=== PATIENT | male | born 1950 | race Caucasian/White ===

== ENCOUNTER 2018-10-27 | Outpatient (CLI) | payer MEDICARE, MEDICAID, SELFPAY ==
--- NOTE | 2018-10-27 08:15 | MERGEMPI_ITS ---
*[facility]* *[facility]* [address] [place] [address] Myocardial Perfusion Imaging - SPECT Jac protocol Date of study: 10/27/2018 *PATIENT PRESENTATION* Height: 177.8cm (70in) Blood Pressure: Weight: 75kg (165lb) BSA: 1.93m^2 Referring physician: Thuan Alvarez Ordering physician: Gino Parker MD Impressions: Normal study after maximal exercise. Summary: 1. Myocardial perfusion imaging: No myocardial perfusion defects noted. 2. The calculated left ventricular ejection fraction after stress: 53%. LV global systolic function is normal. No left ventricular regional motion abnormality. 3. Stress ECG conclusions: The stress ECG is negative. Yancey treadmill score: 12. This score predicts a low risk of cardiac events. 4. Stress: The target heart rate was achieved. There is a normal resting blood pressure with an appropriate response to stress. The patient experienced no chest pain during stress. Exercise capacity is excellent (13.5 METS). Indication: R07.89. History: REASON FOR TESTING: INTERMITTENT LEFT CHEST TENDERNESS WHERE THE STENTS ARE, TWO TO THREE TIMES PER WEEK NOT CORRELATING WITH ACTIVITY. PAST MEDICAL HISTORY: PREVIOUS MYOCARCIAL INFARCTION WITH STENTING, HYPERTENSION, HYPERLIPEDEMIA, DEPRESSION, RIGHT SHOULDER ROTATOR CUFF REPAIR, BILATERAL CARPAL TUNNEL RELEASE, BIALTERAL HERNIA REPAIRS WITH SEPARATE SURGERIES, EXCISION OF A MASS FROM LEFT SIDE OF NECK, AND TONSILLECTOMY AND ADENOIDECTOMY. FAMILY HISTORY: FATHER--HEART ATTACK, MOTHER- DYSRHYMIA, BROTHER- HYPERTENSION. SMOKING STATUS: NEVER EXERCISE ROUTINE: SUMMER--VERY ACTIVE WITH KAYAKING AND SWIMMING. 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 Risk factors: Family history of coronary artery disease. Hypertension. Dyslipidemia. ALLERGIES: AMITRIPTYLINE, DULOXETINE HCI, NAPROXEN. MEDICATIONS: LOSARTAN 50 MG DAILY, FLUOXETINE 40 MG DAILY, BISOPROLOL FUMARATE 5 MG DAILY, ASPIRIN 325 MG DAILY, TRAMADOL 50 MG PRN. Imaging Technique: Protocol: Jac protocol. Acquisition: Gated SPECT; 1 day - rest/stress. The patient was imaged in the supine position. Attenuation correction used. Isotope administration: - Rest. Tc[99m]-sestamibi. Dose: 9.7mCi. Injection time: 08:50 AM. Injection to stress time: 00:45. - Stress. Tc[99m]-sestamibi. Dose: 32.1mCi. Injection time: 09:52 AM. 1-2 min before end of exercise Baseline ECG: SINUS BRADYCARDIA WITH T WAVE INVERSION IN LEAD III WITH HEART RATE OF 54. Sinus bradycardia. Stress protocol: + +---+ + + !Stage !HR !BP (mmHg) !Comments ! + +---+ + + !1 min !---! !Inject Regadenoson.! + +---+ + + !Baseline supine !54 !148/84 ! ! ! ! !(105) ! ! + +---+ + + !Baseline standing !56 !128/78 (95)! ! + +---+ + + !Stage I; 1.7mph, 10degrees; 3 min !83 !158/88 ! ! ! ! !(111) ! ! + +---+ + + !Stage II; 2.5mph, 12degrees; 3 min!97 !148/86 ! ! ! ! !(107) ! ! + +---+ + + !Stage III; 3.4mph, 14degrees; 3 !115!162/88 ! ! !min ! !(113) ! ! + +---+ + + !Stage IV; 4.2mph, 16degrees; 3 min!122!192/96 ! ! ! ! !(128) ! ! + +---+ + + !Recovery; 1 min !121!162/76 ! ! ! ! !(105) ! ! + +---+ + + !Recovery; 3 min !84 !188/88 ! ! ! ! !(121) ! ! + +---+ + + !Recovery; 6 min !73 !130/82 (98)! ! + +---+ + + !1 min !---! !Inject Regadenoson.! + +---+ + + * Stress results: NORMAL HEART RATE RESPONSE. BLOOD PRESSURE RESPONSE: HYPOTENSIVE RESPONSE FROM LYING TO STANDING POSITION. [id number] WITH IMMEDIATE SESSATION OF EXERCISE. NO ECTOPY NOTED. NO ANGINAREPORTED. ISCHEMIA: T WAVE INVERSION IN LEAD III THEN FLIPPED TO UPRIGHT POSITION EARLY DURING EXERCISE AND REMAINED IN UPRIGHT POSITION THROUGH TO THE END OF THE TEST. PATIENT ASYMPTOMATIC. ST WAVE ELEVATION IN VII AT REST AND END OF TEST. Maximal heart rate during stress was 145bpm (95% of maximal predicted heart rate). The maximal predicted heart rate was 152bpm. The target heart rate was achieved. There is a normal resting blood pressure with an appropriate response to stress. The rate-pressure product for the peak heart rate and blood pressure was 63221tz Hg/min. The patient experienced no chest pain during stress. Exercise capacity is excellent (13.5 METS). Stress ECG: The stress ECG is negative. Yancey treadmill score: 12. This score predicts a low risk of cardiac events. Myocardial perfusion: Imaging information: gated. Image quality reduced due to diaphragmatic attenuation. Left ventricular size is normal. Right ventricular size is normal. No myocardial perfusion defects noted. Ventricular Function (Wall Motion): The calculated left ventricular ejection fraction after stress: 53%. LV global systolic function is normal. No left ventricular regional motion abnormality. Right ventricular function is normal. Study data: Thuan Alvarez MD supervised and was readily available during the procedure. This study was interpreted by [facility]. Study status: Routine. Consent: The risks, benefits, and alternatives to the procedure were explained to the patient and informed consent was obtained. Procedure: Initial setup. A baseline ECG was recorded. Surface ECG leads and manual cuff blood pressure measurements were monitored. Heart sounds: Normal. Lung sounds: Normal. Treadmill exercise testing was performed using the Jac protocol. Study completion: All catheters inserted during the procedure were removed. The patient tolerated the procedure well and was discharged from the lab. Discharge: The patient left the laboratory in stable condition. Birthdate: Patient birthdate: 1950. Sex: Gender: male. Study date: Study date: 10/27/2018. Study time: 12:30 PM. Signature Documentation: - The imaging portion of this study was interpreted by Nuclear Director Compensation Thuan Alvarez MD. - The imaging portion of this study was interpreted by Nuclear Radiologist Craig Dumont MD. - The Stress ECG portion of this study was interpreted by Thuan Alvarez MD. Electronically signed by Thuan Alvarez 10/27/2018 12:40
== END 2018-10-27 00:20 ==
PROVIDERS: PCP Internal Medicine; Visit Provider Internal Medicine
DX: R07.89 Other chest pain (principal); I25.10 Atherosclerotic heart disease of native coronary artery without angina pectoris; I25.2 Old myocardial infarction; I10 Essential (primary) hypertension; E78.5 Hyperlipidemia, unspecified; Z82.49 Family history of ischemic heart disease and other diseases of the circulatory system
CPT/HCPCS: 78452; 93016; 93018; 93017

== ENCOUNTER 2018-12-02 11:07 | Outpatient (CLI) | payer MEDICARE, MEDICAID, SELFPAY ==
--- NOTE | 2018-12-02 10:52 | DI.RAD_ITS ---
SYMPTOMS/DIAGNOSIS: RT FOOT PAIN, ATTN TO 3RD METATARSAL PHALANX JOINT, M79.671 RIGHT FOOT: Three views. No priors. At the first metatarsal phalangeal joint there is moderately severe joint space narrowing and moderate sized marginal osteophytes. The remaining metatarsal phalangeal joints are well maintained as are the interphalangeal joints. No acute fracture, dislocation, lytic or sclerotic lesion is seen. The soft tissues are unremarkable. 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
== END 2018-12-02 11:27 ==
PROVIDERS: PCP Internal Medicine; Visit Provider Internal Medicine
DX: M79.671 Pain in right foot (principal); M19.071 Primary osteoarthritis, right ankle and foot
CPT/HCPCS: 73630

== ENCOUNTER 2019-04-26 09:38 | Outpatient (REF) | payer MEDICARE, MEDICAID, SELFPAY ==
[2019-04-26 13:11] LABS: Anion Gap 8.5 mmol/L (3-11); BUN 24 mg/dL (7-18); CO2 27.5 mmol/L (21.0-32.0); CREATININE 0.88 mg/dL (0.70-1.30); Calcium 8.8 mg/dL (8.5-10.1); Chloride 101 mmol/L (98-107); Glucose 99 mg/dL (70-100); Potassium 4.3 mmol/L (3.5-5.1); Sodium 137 mmol/L (136-145)
== END 2019-04-26 09:58 ==
LOC: NCHCN 09:38
PROVIDERS: PCP Internal Medicine; Visit Provider Internal Medicine
DX: I10 Essential (primary) hypertension (principal); I25.10 Atherosclerotic heart disease of native coronary artery without angina pectoris; Z95.5 Presence of coronary angioplasty implant and graft
CPT/HCPCS: 80048

== ENCOUNTER 2019-11-28 16:46 | Outpatient (REF) | payer MEDICARE, MEDICAID, SELFPAY ==
[2019-11-28 22:05] LABS: HCT 45.7 % (40.0-50.0); HGB 15.2 g/dL (13.5-17.5); Mean Corp. HGB Concentration 33.3 g/dL (32.0-36.0); Mean Corpuscular Hemoglobin 29.1 pg (27.0-33.0); Mean Corpuscular Volume 87.4 fL (80-95); Mean Platelet Volume 11.2 fL (8.0-11.0); Platelet Count 273 x1000/uL (130-400); RBC 5.23 m/cumm (4.50-6.00); RBC Distribution Width 13.4 % (11.8-14.1); White Blood Cell Count 4.39 k/cumm (4.4-10.8)
[2019-11-28 22:23] LABS: ALT 31 U/L (16-63); AST 28 U/L (15-37); Alkaline Phosphatase 73 U/L (46-116); Anion Gap 8.6 mmol/L (3-11); BUN 18 mg/dL (7-18); Bilirubin, Total 0.5 mg/dL (0.2-1.0); CO2 28.4 mmol/L (21.0-32.0); CREATININE 0.83 mg/dL (0.70-1.30); Chloride 102 mmol/L (98-107); Glucose 92 mg/dL (74-106); Potassium 4.3 mmol/L (3.5-5.1); Sodium 139 mmol/L (136-145); TSH 1.64 uIU/mL (0.36-3.74); Total Protein 7.3 g/dL (6.4-8.2)
== END 2019-11-28 17:06 ==
LOC: NCHCN 16:46
PROVIDERS: PCP Internal Medicine; Visit Provider Internal Medicine
DX: R53.83 Other fatigue (principal); R68.89 Other general symptoms and signs; I25.10 Atherosclerotic heart disease of native coronary artery without angina pectoris; I10 Essential (primary) hypertension
CPT/HCPCS: 80053; 85027; 84443

== ENCOUNTER 2020-03-22 08:37 | Outpatient (CLI) | payer MEDICARE, MEDICAID, SELFPAY ==
[2020-03-23 23:01] LABS: COVID-19 RT-PCR UVMMC Result Negative (Negative)
== END 2020-03-22 08:57 ==
PROVIDERS: PCP Internal Medicine; Visit Provider Internal Medicine
DX: Z03.818 Encounter for observation for suspected exposure to other biological agents ruled out (principal)
CPT/HCPCS: U0003

== ENCOUNTER 2020-09-18 16:09 | Outpatient (REF) | payer MEDICARE, MEDICAID, SELFPAY ==
[2020-09-18 21:52] LABS: Cholesterol 218 mg/dL (<200); Triglyceride 97 mg/dL (<150)
[2020-09-18 22:13] LABS: Calculated LDL 156 mg/dL (<100); HDL Cholesterol 43 mg/dL (40-60)
[2020-09-20 14:29] LABS: PSA, Screening 0.8 ng/mL (0-6.5)
== END 2020-09-18 16:29 ==
LOC: NCHCN 16:09
PROVIDERS: PCP Internal Medicine; Visit Provider Internal Medicine
DX: I10 Essential (primary) hypertension (principal); I25.10 Atherosclerotic heart disease of native coronary artery without angina pectoris; M47.896 Other spondylosis, lumbar region; F41.9 Anxiety disorder, unspecified; Z00.00 Encounter for general adult medical examination without abnormal findings
CPT/HCPCS: 80061; 84153

== ENCOUNTER 2021-01-17 15:39 | Emergency (ER) | payer MEDICARE, MEDICAID, SELFPAY ==
[2021-01-17] VITALS (18 sets, daily range): BP systolic 155–175; BP diastolic 84–101; PULSE 76–86; RESP 15–30; TEMP 36.8; O2SAT 96–100
--- NOTE | 2021-01-17 15:30 | RT.EKG_ITS ---
APPROVED REPORT Exam: Resting ECG Patient Location: E HR:75 bpm ECG Measurements Heart Rate 75 AXIS AK 211 P 39 QRSd 102 QRS -48 QT 380 T 48 QTc 426 Conclusion Sinus rhythm...normal P axis, V-rate 60- 99 Inferior infarct, acute...ST>0.10mV, T upright, II III aVF Physician: Rate 75, intervals normal, sinus rhythm, 1 mm of elevation in lead II, III, and aVF with s lightly less than 1 mm of depression in aVL. No other reciprocal elevation or depression. Upright T waves in 2 3 aVF and aVL.
--- NOTE | 2021-01-17 15:45 | DI.RAD_ITS ---
EXAM: XR PORTABLE CHEST AP CLINICAL HISTORY: stemi TECHNIQUE: 2D digital imaging was performed. COMPARISON: No exams were available for comparison FINDINGS: MEDIASTINUM: Normal. HEART: Normal. PULMONARY VASCULATURE: Normal. LUNGS: Clear. PLEURAL SPACE: No pleural effusion or pneumothorax. BONE:Within normal limits for the patient's age. Postsurgical changes are seen in the right shoulder . OTHER FINDINGS:Normal. IMPRESSION: No acute pulmonary findings. DATA REPOSITORY: RADIATION DOSE DELIVERED:
[2021-01-17 15:59] LABS: Abs Immature Grans 0.01 10^3/uL (0.0-0.06); Absolute Basophil Count 0.03 10^3/uL (0.0-0.2); Absolute Eosinophil Count 0.09 10^3/uL (0.0-0.7); Absolute Lymphocyte Count 1.56 10^3/uL (1.2-3.4); Absolute Monocyte Count 0.36 10^3/uL (0.1-0.8); Absolute Neutrophil Count 4.48 10^3/uL (1.2-6.7); Basophils % 0.5; Eosinophils % 1.4; HGB 16.3 g/dL (13.5-17.5); Immature Grans % 0.2; Lymphocytes % 23.9; MCH 29.7 pg (27.0-33.0); MCV 87.4 fL (80-95); MPV 9.9 fL (8.0-11.0); Monocytes % 5.5; Neutrophils % 68.5; Nucleated RBC 0 %; Platelet Count 266 10^3/uL (130-400); RBC 5.49 10^6/uL (4.36-5.78); RDW-SD 41.8 fL; WBC 6.53 10^3/uL (4.4-10.8)
--- NOTE | 2021-01-17 16:00 | RT.EKG_ITS ---
APPROVED REPORT Exam: Resting ECG Patient Location: E HR:79 bpm ECG Measurements Heart Rate 79 AXIS IA 222 P 36 QRSd 101 QRS -56 QT 369 T 42 QTc 424 Conclusion Sinus rhythm...normal P axis, V-rate 60- 99 Prolonged IA interval...IA >220, V-rate 50- 90 Inferior infarct, acute...ST>0.10mV, T upright, II III aVF Physcian: Rate 79, sinus rhythm, IA prolonged at 222, intervals otherwise unremarkable, 1 mm of eleva tion in leads II, III, and aVF with less than 1 mm of depression in aVL. T waves remain upright. Mor phology of P waves and elevation appears change compared to prior EKG in 2015
[2021-01-17 16:13] LABS: PTT Activated 22.6 sec (21.0-27.5)
[2021-01-17 16:18] LABS: ALT 30 U/L (16-63); AST 25 U/L (15-37); Albumin 4.1 g/dL (3.4-5.0); Alkaline Phosphatase 74 U/L (46-116); Anion Gap 9.2 mmol/L (3-11); BUN 18 mg/dL (7-18); Bilirubin, Total 0.3 mg/dL (0.2-1.0); CO2 26.8 mmol/L (21.0-32.0); Calcium 9.1 mg/dL (8.5-10.1); Chloride 103 mmol/L (98-107); Glucose 167 mg/dL (74-106); Magnesium 2.2 mg/dL (1.8-2.4); NT-proBNP 83 pg/mL (<300); Potassium 4.2 mmol/L (3.5-5.1); Sodium 139 mmol/L (136-145); Total Protein 7.7 g/dL (6.4-8.2)
[2021-01-17 16:19] LABS: Troponin I < 0.05 ng/mL (<0.06)
[2021-01-17] MEDS: Clopidogrel 300 MG TAB 600 MG PO (16:21)
--- NOTE | 2021-01-17 16:23 | ED.GENADUL_ITS ---
Discharge Plan Disposition Patient Disposition: [facility] Condition: Critical Discharge Details Clinical Impression: ST elevation, Chest pain Primary Care Provider: Gino Parker ED Provider: Kb Hart Home Meds and New Rx's Prescriptions: No Action losartan 25 MG tablet 50 mg PO DAILY RF: 0 aspirin 81 MG tablet,chewable 81 mg PO DAILY RF: 0 Medical Decision Making Upon my evaluation, this patient had a high probability of imminent or life- threatening deterioration, which required my direct attention, intervention, and personal management. I have personally provided 45 minutes of critical care time exclusive of time spent on separately billable procedures. Time includes review of laboratory data, radiology results, discussion with consultants, and monitoring for potential decompensation. Interventions were performed as documented. 70-year-old male with a past medical history of STEMI and stents in 2014 presents today for atypical left arm achiness focally at his distal bicep, and a burning sensation in his chest while he was cooking dinner. He did not eat anything spicy. He also got sweaty and diaphoretic at that time. He laid down and this did not change his symptoms, he drove himself to the ER. He took a Tums and at least 500 mg of aspirin (we discussed antiperspirants speci fically the patient does confirm it was aspirin and Tylenol or ibuprofen)and neither of these improved his symptoms. He came to the ER for further assessment. Patient states that symptoms felt identical to when he had his previous RI in 2015. He denies any ripping or tearing in his chest. He denies any headache, numbness tingling or focal weakness. He also states he has not been taking his home medications for quite some time. No other complaints at this time. No other modifying factors. EKG shows 1 mm of elevation in lead II, III, and aVF with 1 mm of depression in aVL. No other reciprocal depression. Review of prior EKGs demonstrates similar elevation when he was having his last myocardial infarction in the inferior area 6 years ago. However there does appear to be a change in T wave inversions, and T wave morphology for sure. Symptoms are concerning for inferior STEMI. I did contact Dr. Gutierrez and spoke with her at 4:[address] [facility] cardiology, she reviewed the EKG and after a prolonged discussion she feels that at this time with the patient's EKG, age, vital signs, clinical scenario that thrombolytics are not indicated. She did recommend 600 of Plavix and to heparinize the patient. I did request further discussion, and Dr. Gutierrez reviewed the case with hotshot superintendent. We did have subsequent further discussion store consultant back at 417 with the [facility] cardiology. They too upon review of the EKG and history do not feel that thrombolytics are indicated right now but do recommend emergent transfer down to [facility] Administrative Director for further evaluation. With the patient's age, risk factors and taking the entire clinical scenario into account per [facility]'s instructional design specialist recommendations we will withhold thrombolytics. follow their recommendations of 600 of Plavix and to heparinize the patient and sending him directly down to Administrative Director via air transport. The case was discussed with the patient, he has no further questions. The case was also discussed with the patient family members by nursing staff and myself. I have extensively reviewed the treatment plan with the patient. I have addressed all patient concerns at this time. I have also discussed the plan with the admitting physician and they agree with the current assessment and plan and have agreed to assume responsibility for the patient. All parties demonstrate verbal understanding and agreement with our assessment and plan at this time. The documentation in this chart was dictated using [employer] dictation software. Please excuse any dictation errors. At time of transfer the patient was reassessed and continued to demonstrate No signs of acute respiratory distress requiring intubation, hemodynamic instability requiring pressor support, or rapidly declining mental status. The patient is stable for transport. EKG 15: 46 Rate 75, intervals normal, sinus rhythm, 1 mm of elevation in lead II, III, and aVF with slightly less than 1 mm of depression in aVL. No other reciprocal elevation or depression. Upright T waves in 2 3 aVF and aVL. Morphology of P waves and elevation appears change compared to prior EKG in 2014 EKG 16: 14 Rate 79, sinus rhythm, MT prolonged at 222, intervals otherwise unremarkable, 1 mm of elevation in leads II, III, and aVF with less than 1 mm of depression in aVL. T waves remain upright. Morphology of P waves and elevation appears change compared to prior EKG in 2014 FINDINGS: Lungs: Unremarkable. No consolidation. Pleural spaces: Unremarkable. No pleural effusion. No pneumothorax. Heart/Mediastinum: Unremarkable. No cardiomegaly. Bones/joints: Postoperative changes in the right shoulder with metallic anchor in the humeral head and resection distal. IMPRESSION: No acute findings Dictated and Authenticated by: Radha Ribera MD. Ordering:JOSETTE Quiles MD HPI General Date/Time Provider Initiated Documentation: 01/17/21 15:47 . HPI Narrative: 70-year-old male with a past medical history of STEMI and stents in 2014 presents today for atypical left arm achiness focally at his distal bicep, and a burning sensation in his chest while he was cooking dinner. He did not eat anything spicy. He also got sweaty and diaphoretic at that time. He laid down and this did not change his symptoms, he drove himself to the ER. He took a Tums and 500 mg of aspirin and neither of these improved his symptoms. He came to the ER for further assessment. Patient states that symptoms felt identical to when he had his previous RI in 2014. He denies any ripping or tearing in his chest. He denies any headache, numbness tingling or focal weakness. He also states he has not been taking his home medications for quite some time. No other complaints at this time. No other modifying factors. 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 Unverified 01/17/21 15:47 [From Cymbalta] effects naproxen AdvReac pt does Unverified 01/17/21 15:47 not like reaction General Stated Complaint: Chest Pain MINDA: 2 Review of Systems All systems reviewed & are unremarkable except as noted in HPI and below PFSH Medical History BACK PAIN Carpal tunnel syndrome RIGHT History of depression History of hypertension RI (myocardial infarction) 2013 Neck pain ROTATOR CUFF TENDINITIS Surgical History Colonoscopy - MAC (10/02/17) HERNIA REPAIR Social History Smoking/Tobacco Use Status: Never Smoking risk assessment performed?: Yes Alcohol Intake: current Alcohol Intake frequency: a few times a month Drug use: Never Substance use type: does not use Do you feel safe at home: Yes Do you feel safe in your relationship?: Yes Exam Narrative Exam Narrative: 1.Const: Well-nourished, Well-developed, appearing stated age 2.Eyes: PERRL, no conjunctival injection, and symmetrical lids. 3.ENT: Atraumatic external nose and ears. Moist MM. Neck: Symmetric, trachea midline, No thyromegaly. 4.CVS: +S1/S2, No murmurs or gallops. Peripheral pulses 2+ and equal in all extremities. Brisk capillary refill in all extremities. Radial pulses +2 bilaterally 5.RESP: Unlabored respiratory effort. Clear to auscultation bilaterally. No wheezes rales or rhonchi 6.GI: Soft, Nontender/Nondistended, No hepatosplenomegaly. No guarding or rebound. 7.MSK: Normocephalic/Atraumatic, Extremities w/o deformity or ttp No cyanosis or clubbing, Normal movement of all extremities 8.Skin: Warm, Dry. No rashes or lesions. 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 Sensation grossly intact, no focal neurologic deficits. 10.Psych: (AAO) x3. Appropriate mood and affect Course Vital Signs Vital signs: Vital Signs Pulse 78 01/17/21 15:45 Respiratory Rate 23 01/17/21 15:45 Blood Pressure 161/96 H 01/17/21 15:45 Temperature 36.8 C 01/17/21 15:52 Temperature Source Temporal Artery Scan 01/17/21 15:52 Pulse 82 01/17/21 16:11 Pulse 81 01/17/21 16:11 Respiratory Rate 23 01/17/21 16:11 Respiratory Effort Non-Labored 01/17/21 15:55 Respiratory Depth Normal 01/17/21 15:55 Respiratory Pattern Normal 01/17/21 15:55 Blood Pressure 158/90 H 01/17/21 16:11 Blood Pressure Mean 106 01/17/21 16:11 Blood Pressure Position Sitting 01/17/21 15:52 Pulse Oximetry 99 01/17/21 16:11 Oxygen Delivery Method Room Air 01/17/21 15:52 Oxygen Flow Rate 0 01/17/21 15:52 Pain Level 1 01/17/21 15:55 Lab/Test Results Lab/Test Results: Laboratory Tests Range/Units 01/17/21 01/17/21 01/17/21 15:53 15:53 15:53 WBC (4.4-10.8) 10^3/uL 6.53 RBC (4.36-5.78) 10^6/uL 5.49 Hgb (13.5-17.5) g/dL 16.3 Hct (40.0-50.0) % 48.0 MCV (80-95) fL 87.4 MCH (27.0-33.0) pg 29.7 MCHC (32.0-36.0) % 34.0 RDW (11.8-14.1) % 13.0 Plt Count (130-400) 10^3/uL 266 MPV (8.0-11.0) fL 9.9 Immature Gran % 0.2 Neutrophils % 68.5 Lymphocytes % 23.9 Monocytes % 5.5 Eosinophils % 1.4 Basophils % 0.5 Nucleated RBC % % 0 Absolute Neutrophils (1.2-6.7) 10^3/uL 4.48 Absolute Lymphocytes (1.2-3.4) 10^3/uL 1.56 Absolute Monocytes (0.1-0.8) 10^3/uL 0.36 Absolute Eosinophils (0.0-0.7) 10^3/uL 0.09 Absolute Basophils (0.0-0.2) 10^3/uL 0.03 PT (9.3-11.0) sec 10.0 INR (0.9-1.1) 1.0 APTT (21.0-27.5) sec 22.6 Sodium (136-145) mmol/L 139 Potassium (3.5-5.1) mmol/L 4.2 Chloride (98-107) mmol/L 103 Carbon Dioxide (21.0-32.0) mmol/L 26.8 Anion Gap (3-11) mmol/L 9.2 BUN (7-18) mg/dL 18 Creatinine (0.70-1.30) mg/dL 1.0 Estimated GFR/1.73 m2 (mL/min/1.73m2) >= 60.00 Glucose (74-106) mg/dL 167 H Calcium (8.5-10.1) mg/dL 9.1 Magnesium (1.8-2.4) mg/dL 2.2 Total Bilirubin (0.2-1.0) mg/dL 0.3 AST (15-37) U/L 25 ALT (16-63) U/L 30 Alkaline Phosphatase (46-116) U/L 74 Troponin I (<0.06) ng/mL < 0.05 NT-Pro-B Natriuret Pep (<300) pg/mL 83 Total Protein (6.4-8.2) g/dL 7.7 Albumin (3.4-5.0) g/dL 4.1
--- NOTE | 2021-01-17 16:25 | DI.VRAD_ITS ---
PROCEDURE INFORMATION: Exam: XR Chest Exam date and time: 01/17/2021 3:51 PM Age: 70 years old Clinical indication: Chest pain; Type not specified; Prior surgery; Surgery date: 6+ months; Surgery type: Prior heart stent placements. ; Patient HX: Stemi; Additional info: Cpr pads on patient. TECHNIQUE: Imaging protocol: XR of the chest Views: 1 view. COMPARISON: CR PORTABLE CHEST ONE VIEW 12/29/2014 9:47 AM FINDINGS: Lungs: Unremarkable. No consolidation. Pleural spaces: Unremarkable. No pleural effusion. No pneumothorax. Heart/Mediastinum: Unremarkable. No cardiomegaly. Bones/joints: Postoperative changes in the right shoulder with metallic anchor in the humeral head and resection distal. IMPRESSION: No acute findings Dictated and Authenticated by: Radha Ribera MD. Ordering:JOSETTE Quiles MD
== END 2021-01-17 16:33 | disposition short-term general hospital (02) ==
PROVIDERS: Emergency Provider Student in an Organized Health Care Education/Training Program; PCP Internal Medicine
DX: I21.9 Acute myocardial infarction, unspecified (principal); I25.2 Old myocardial infarction; Z95.5 Presence of coronary angioplasty implant and graft; Z91.128 Patient's intentional underdosing of medication regimen for other reason
CPT/HCPCS: 80053; 93005; 96365; 96376; 99291; 71045; 83735; 83880; 84484; 85025; 85610; 85730; 93010

== ENCOUNTER 2021-01-24 16:54 | Outpatient (REF) | payer MEDICARE, MEDICAID, SELFPAY ==
[2021-01-24 20:21] LABS: HCT 46.6 % (40.0-50.0); HGB 15.5 g/dL (13.5-17.5); MCH 29.3 pg (27.0-33.0); MCHC 33.3 % (32.0-36.0); MCV 88.1 fL (80-95); MPV 11.2 fL (8.0-11.0); Platelet Count 279 10^3/uL (130-400); RBC 5.29 10^6/uL (4.36-5.78); RDW 12.9 % (11.8-14.1); WBC 5.03 10^3/uL (4.4-10.8)
[2021-01-24 20:42] LABS: ALT 38 U/L (16-63); AST 26 U/L (15-37); Albumin 3.9 g/dL (3.4-5.0); Alkaline Phosphatase 73 U/L (46-116); Anion Gap 10.1 mmol/L (3-11); BUN 19 mg/dL (7-18); Bilirubin, Total 0.3 mg/dL (0.2-1.0); CO2 26.9 mmol/L (21.0-32.0); CREATININE 0.9 mg/dL (0.70-1.30); Calcium 9.1 mg/dL (8.5-10.1); Chloride 103 mmol/L (98-107); Glucose 109 mg/dL (74-106); Potassium 4.2 mmol/L (3.5-5.1); Sodium 140 mmol/L (136-145); Total Protein 7.2 g/dL (6.4-8.2)
== END 2021-01-24 16:55 | disposition home or self-care (01) ==
LOC: NCHCN 16:54
PROVIDERS: PCP Internal Medicine; Visit Provider Internal Medicine
DX: G45.9 Transient cerebral ischemic attack, unspecified (principal)
CPT/HCPCS: 80053; 85027

== ENCOUNTER 2021-01-28 01:09 | Outpatient (CLI) | payer MEDICARE, MEDICAID, SELFPAY ==
--- NOTE | 2021-01-28 | DI.CT_ITS ---
EXAM: CT BRAIN NECK CTA CLINICAL HISTORY: TRANSIENT GLOBAL AMNESIA,G45.4,TIA,G45.9. TECHNIQUE: Imaging Protocol: Axial CT angiography was performed with multi-slice acquisition and mu lti-planar and/or 3D reconstructions. CONTRAST MATERIAL: Intravenous: Omnipaque 350 Contrast volume:85 COMPARISON: CR,XR XR PORTABLE CHEST AP from 01/17/2021 CR,XR XR PORTABLE CHEST AP from 01/17/2021 FINDINGS: CTA Neck W: Aortic arch anatomy: Conventional. Anterior circulation: There is no significant stenosis at the origin of the common carotid arteries and both vessels ascend with normal luminal diameters. There is no significant atherosclerotic narrowing at the carotid bif urcation and proximal internal carotid arteries and both internal carotid arteries exhibit normal vahid meters in the upper neck and are patent in the skull base-carotid canals. Posterior circulation: Both vertebral arteries originated conventional fashion off of the subclavian arteries. There is no obvious stenosis in the subclavian arteries proximal to the vertebral artery takeoff points. Both vertebral arteries ascend normal luminal diameters in the foramen transverse area with no eviden ce of intraluminal filling defects nor dissection and both vertebral arteries contribute to the forma tion of the basilar artery at the skull base. CTA Brain W: Anterior circulation: Internal carotid arteries are patent in the skull base and carotid canals. Supraclinoid aspects are patent. Both middle cerebral arteries are patent. Both A1 segments are patent as are the anterior c erebral arteries and there is no evidence of aneurysm at the level of the anterior communicating cris ry nor elsewhere in the [id number] Posterior circulation: Both vertebral arteries contribute to the formation of the basilar artery at the skull base. Distall y the basilar artery terminates as posterior cerebral arteries. These appear patent. There is a pos terior communicating artery on the right side of the [id number]-fu-[id number] with a 2 millimeter diameter. No obvious demonstrable posterior communicating artery seen on the left side of the zxemkk-km-Wravng. . There is no aneurysm of the tip of the basilar artery. CT BRAIN: There is no evidence of intracranial hemorrhage, mass effect, or shift of midline structures. No ext ra-axial fluid collections. The ventricles are not enlarged or shifted and there is no blood within the ventricular system nor within the basal cisterns.. There are no ring enhancing lesions in the br ain. There is no abnormal meningeal enhancement. IMPRESSION: 1. Patent vessels in the neck and brain, as described above. 2. No evidence of true luminal thrombus nor aneurysm 3. No ring enhancing lesions in the brain. No abnormal meningeal enhancement, focal or diffuse. RADIATION DOSE DELIVERED: 2,358.44mGy.cm Total DLP DATA REPOSITORY: All CT scans at this facility are submitted to the National Radiology Data Registry (NRDR) Dose Index Registry (DIR) with the [employer] (ACR). RADIATION OPTIMIZATION: All CT scans at this facility use at least one of these dose optimization te chniques: automated exposure control; mA and/or kV adjustment per patient size (includes targeted exa ms where dose is matched to clinical indication); or iterative reconstruction.
[2021-01-28] MEDS: Omnipaque 350 MG/ML 100 ML BTL IV (09:10)
[2021-01-28] MEDS: Normal Saline - Diluent 50 ML VIAL IV (09:11)
[2021-01-28] MEDS: Normal Saline Flush 10 ML SYR IVP (09:12)
== END 2021-01-28 01:29 ==
PROVIDERS: PCP Internal Medicine; Visit Provider Internal Medicine
DX: G45.4 Transient global amnesia (principal); G45.9 Transient cerebral ischemic attack, unspecified
CPT/HCPCS: 70496; 70498; J3490

== ENCOUNTER 2022-04-08 18:19 | Outpatient (REF) | payer MEDICARE, MEDICAID, SELFPAY ==
[2022-04-08 14:54] LABS: Anion Gap 9.8 mmol/L (3-11); BUN 19 mg/dL (7-18); CO2 27.2 mmol/L (21.0-32.0); CREATININE 0.8 mg/dL (0.70-1.30); Calcium 9.3 mg/dL (8.5-10.1); Chloride 105 mmol/L (98-107); Glucose 111 mg/dL (74-106); Potassium 4.8 mmol/L (3.5-5.1); Sodium 142 mmol/L (136-145)
== END 2022-04-08 18:20 | disposition home or self-care (01) ==
LOC: NCHCN 18:19
PROVIDERS: PCP Internal Medicine; Visit Provider Family Medicine
DX: I10 Essential (primary) hypertension (principal); I25.10 Atherosclerotic heart disease of native coronary artery without angina pectoris
CPT/HCPCS: 80048

== ENCOUNTER 2022-12-22 01:51 | Outpatient (CLI) | payer MEDICARE, MEDICAID, SELFPAY ==
--- NOTE | 2022-12-22 09:35 | DI.RAD_ITS ---
Exam(s) XR RIBS LT W PA LAT CHEST EXAM: XR RIBS LT W PA LAT CHEST CLINICAL HISTORY: LT SIDED RIB PAIN, R07.81 TECHNIQUE: 2D digital imaging was performed. Six images are obtained. COMPARISON: CR,XR XR PORTABLE CHEST AP from 01/17/2021 FINDINGS: MEDIASTINUM: Normal. HEART: Normal. PULMONARY VASCULATURE: Normal. LUNGS: Clear. PLEURAL SPACE: No pleural effusion or pneumothorax. BONE:Within normal limits for the patient's age. LEFT RIBS: Normal. OTHER FINDINGS:Normal. IMPRESSION: 1. No acute pulmonary findings. 2. Unremarkable left ribs. DATA REPOSITORY: RADIATION DOSE DELIVERED:
== END 2022-12-22 02:11 ==
LOC: DI 01:51
PROVIDERS: PCP Internal Medicine; Visit Provider Family Medicine
DX: R07.81 Pleurodynia (principal)
CPT/HCPCS: 71046; 71100

== ENCOUNTER 2023-07-02 11:52 | Outpatient (REF) | payer MEDICARE, MEDICAID, SELFPAY ==
[2023-07-02 14:40] LABS: Abs Immature Grans 0.02 10^3/uL (0.0-0.06); Absolute Basophil Count 0.02 10^3/uL (0.0-0.2); Absolute Eosinophil Count 0.03 10^3/uL (0.0-0.7); Absolute Lymphocyte Count 1.57 10^3/uL (1.2-3.4); Absolute Monocyte Count 0.65 10^3/uL (0.1-0.8); Absolute Neutrophil Count 5.66 10^3/uL (1.2-6.7); Basophils % 0.3; Eosinophils % 0.4; HCT 47.3 % (40.0-50.0); HGB 15.9 g/dL (13.5-17.5); Immature Grans % 0.3; Lymphocytes % 19.7; MCH 29.6 pg (27.0-33.0); MCHC 33.6 % (32.0-36.0); MCV 88 fL (80-95); MPV 11.2 fL (8.0-11.0); Monocytes % 8.2; Neutrophils % 71.1; Platelet Count 241 10^3/uL (130-400); RBC 5.37 10^6/uL (4.36-5.78); RDW 13.2 % (11.8-14.1); RDW-SD 42.5 fL; WBC 7.95 10^3/uL (4.4-10.8)
[2023-07-02 14:54] LABS: ESR 19 mm/hr (0-20)
[2023-07-02 15:13] LABS: ALT 33 U/L (16-63); AST 28 U/L (15-37); Albumin 3.8 g/dL (3.4-5.0); Alkaline Phosphatase 72 U/L (46-116); Anion Gap 9.7 mmol/L (3-11); BUN 20 mg/dL (7-18); Bilirubin, Total 0.7 mg/dL (0.2-1.0); CO2 27.3 mmol/L (21.0-32.0); CREATININE 0.8 mg/dL (0.70-1.30); Calcium 8.9 mg/dL (8.5-10.1); Calculated LDL 124 mg/dL (<100); Chloride 105 mmol/L (98-107); Cholesterol 194 mg/dL (<200); Estimated GFR 94.03 (mL/min/1.73m2); Glucose 111 mg/dL (74-106); HDL Cholesterol 53 mg/dL (40-60); Potassium 4.4 mmol/L (3.5-5.1); Sodium 142 mmol/L (136-145); TSH (W/Ref FT4) 0.96 uIU/mL (0.36-3.74); Total Protein 7.1 g/dL (6.4-8.2); Triglyceride 87 mg/dL (<150)
[2023-07-03 11:56] LABS: Lyme Ab w Rflx to Lyme Confirm Negative (Negative)
[2023-07-05 19:27] LABS: Anaplasma phagocytophilum Negative (Negative); B. miyamotoi PCR Negative (Negative); Babesia divergens/MO-1 Negative (Negative); Babesia duncani Negative (Negative); Babesia microti Negative (Negative); Ehrlichia chaffeensis Negative (Negative); Ehrlichia ewingii/canis Negative (Negative); Ehrlichia muris eauclairensis Negative (Negative)
== END 2023-07-02 11:53 | disposition home or self-care (01) ==
LOC: NCHCN 11:52
PROVIDERS: PCP Internal Medicine; Visit Provider Family Medicine
DX: I10 Essential (primary) hypertension (principal); R06.09 Other forms of dyspnea; I25.10 Atherosclerotic heart disease of native coronary artery without angina pectoris
CPT/HCPCS: 80053; 80061; 85652; 87798; 84443; 85025; 86618

== ENCOUNTER → 2023-11-19 01:07 | Outpatient (CLI) | payer MEDICARE, MEDICAID, SELFPAY ==
--- NOTE | 2023-11-19 | DI.NM_ITS ---
APPROVED REPORT Exam: Pharmacologic Patient Location: Out-Patient Room/Bed: Stress Nurse: Shelley Lemus RN Ordering Provider:ALEA AGUIRRE, Contact Number: [phone] BMI: 26.45 Baseline Rhythm: Sinus Bradycardia Comment: Rare PAC Indications: Fatigue, STOVALL, hx. CAD, Medical History Medical History: HTN, depression, NE (2015), back pain, DJD, CAD, transient global amnesia Cardiac Medications: Aspirin (states he is not taking) Allergies: Amitriptyline, cymbalta, naproxen Cardiac Risk Factors: Family hx, HTN, CVD, HLD Previous Cardiac Procedures: Hx STEMI with 2 stents Pretest Chest Pain Characteristics: None Exercise History: Indeterminate Physical Disabilities: None Lung Sounds: Clear to auscultation Heart Sounds: Regular Stress Test Details Test: Pharmacologic stress was paired with low level exercise. Reason for pharmacologic stress test: Unable to read ECG due to significant artifact. Nuclear Acquisition: Rest Tc-99m/Stress Tc-99m 1 day Rest Isotope: Tc-99m Sestamibi. Dose: 11.0 Date: 11/19/2023 Injection Time: 0915 Stress Isotope: Tc-99m Sestamibi. Dose: 32.8 Date: 11/19/2023 Injection Time: 1105 HR Resting HR Supine: 58 bpm Max Heart Rate (APMHR): 147.162125 bpm Resting HR Standin bpm Target HR (85% APMHR): 124.584574 bpm Max HR Achieved: 83 bpm % of APMHR: 56.46 Recovery HR: 64 bpm BP Resting BP Supine: 172/92 mmHg Resting BP Standin/94 mmHg Max BP: 188/94 mmHg Recovery BP: 144/78 mmHg ECG Resting ECG: Sinus Bradycardia Ectopy: Rare PAC Stress ECG: Sinus Rhythm ST Change: Nondiagnostic low heart rate Arrhythmia: None Recovery ECG: Sinus Rhythm Recovery ST Change: Nondiagnostic low heart rate Recovery Arrhythmia: None Clinical Stress Symptoms: Moderate SOB Angina Score: None Rate Pressure Product: [id number] Stress ECG Conclusion 1. 1. Dyspnea,no chest pain, with stress 2. 2.Nondiagnostic ECG 3. 3.Normal BP response 4. 4.Nuclear findings reported separately Stress Test Summary STAGE HR BP SpO2 Symptoms NOTES Supine 58 172/92 Standing 66 188/94 1 min post Lexiscan injection 74 180/86 96 Moderate SOB 3 min post Lexiscan injection 71 138/78 99 SOB resolved 6 min post Lexiscan injection 64 144/78 98 Protocol changed to jolie due to significant artifact and inability to read ECG. MPI Conclusion 1.Moderate sized infero-apical fixed defect consistent with old infarct. No reversibility to suggest ischemia 2.Infero-apical hypokinesis,EF calculated to be 37%. Radiologist Interpretation Radiologist Interpretation by: Craig Dumont MD Interpretation Date/Time: 11/23/2023 16:14:02
[2023-11-19] MEDS: Regadenoson 0.4 MG/5 ML SYR IVP (11:38)
== END ==
PROVIDERS: PCP Internal Medicine; Visit Provider Family Medicine
DX: I25.10 Atherosclerotic heart disease of native coronary artery without angina pectoris (principal)
CPT/HCPCS: 78452; 93016; 93018; 93017; J2785

== ENCOUNTER 2023-12-24 13:44 | Outpatient (REF) | payer MEDICARE, MEDICAID, SELFPAY ==
[2023-12-25 10:53] LABS: Campylobacter PCR Negative (Negative); Salmonella PCR Negative (Negative); Shiga Toxin PCR Negative (Negative); Shigella/Enteroinvasive Ecoli Negative (Negative)
== END 2023-12-24 13:45 | disposition home or self-care (01) ==
LOC: NCHCN 13:44
PROVIDERS: PCP Internal Medicine; Visit Provider Family Medicine
DX: R19.7 Diarrhea, unspecified (principal)
CPT/HCPCS: 87329; 87505

== ENCOUNTER 2024-07-05 16:14 | Outpatient (REF) | payer MEDICARE, MEDICAID, SELFPAY ==
[2024-07-05 21:56] LABS: Abs Immature Grans 0.02 10^3/uL (0.0-0.06); Absolute Basophil Count 0.05 10^3/uL (0.0-0.2); Absolute Eosinophil Count 0.01 10^3/uL (0.0-0.7); Absolute Lymphocyte Count 1.13 10^3/uL (1.2-3.4); Absolute Monocyte Count 0.42 10^3/uL (0.1-0.8); Absolute Neutrophil Count 4.17 10^3/uL (1.2-6.7); Basophils % 0.9 %; Eosinophils % 0.2 %; HCT 49.8 % (40.0-50.0); HGB 16.6 g/dL (13.5-17.5); Immature Grans % 0.3 %; Lymphocytes % 19.5 %; MCH 29.8 pg (27.0-33.0); MCHC 33.3 % (32.0-36.0); MCV 89 fL (80-95); MPV 10.9 fL (8.0-11.0); Monocytes % 7.2 %; Neutrophils % 71.9 %; Platelet Count 250 10^3/uL (130-400); RBC 5.57 10^6/uL (4.36-5.78); RDW 12.7 % (11.8-14.1); RDW-SD 42.1 fL
[2024-07-05 23:09] LABS: ALT 38 U/L (16-63); AST 30 U/L (15-37); Albumin 4.4 g/dL (3.4-5.0); Alkaline Phosphatase 70 U/L (46-116); Anion Gap 10.8 mmol/L (3-11); BUN 22 mg/dL (7-18); Bilirubin, Total 0.56 mg/dL (0.2-1.0); CO2 27.2 mmol/L (21.0-32.0); CREATININE 0.9 mg/dL (0.70-1.30); Calcium 9.3 mg/dL (8.5-10.1); Chloride 104 mmol/L (98-107); Estimated GFR 90.18 (mL/min/1.73m2); Glucose 95 mg/dL (74-106); Potassium 4.6 mmol/L (3.5-5.1); Sodium 142 mmol/L (136-145); TSH (W/Ref FT4) 1.23 uIU/mL (0.36-3.74); Total Protein 7.4 g/dL (6.4-8.2)
== END 2024-07-05 16:15 | disposition home or self-care (01) ==
LOC: NCHCN 16:14
PROVIDERS: PCP Internal Medicine; Visit Provider Family Medicine
DX: I10 Essential (primary) hypertension (principal)
CPT/HCPCS: 80053; 84153; 84443; 85025